=== PATIENT | female | born 1955 | race Caucasian/White ===

== ENCOUNTER 2018-07-31 09:56 | Emergency (ER) | payer OTHER ==
[~2018-07-31] VITALS: Ht 149.9 cm; Wt 59.0 kg
--- NOTE | 2018-07-31 09:56 | NUR ---
PT ELIJAHA BLS TO ER BED 09
[2018-07-31 09:59] VITALS: BP 132/81
--- NOTE | 2018-07-31 10:00 | NUR ---
BROUGHT IN BY [facility] PT FELL FROM A SEATED POSITION WHILE LEANING FOWARD TENNILLE SIZE DISCOLORATION TO FOREHEAD AND EPISTAXIS BLEEDING NOT CONTINUED UPON ER ARRIVAL HX--TRISOMY 21, ARTHRITIS, HTN RX---?
--- NOTE | 2018-07-31 10:45 | NUR ---
Soto Malik (DP/Gyn Physician) for transportation
--- NOTE | 2018-07-31 11:00 | NUR ---
# 8 FR Urinary catheter inserted utilizing sterile technique. Immediate return of 150 ml yellow urine noted. Urine sample collected and sent to lab. Pt tolerated procedure well .
[2018-07-31 11:30] LABS: APPEARANCE,URINE SLIGHTLY HAZY (CLEAR); COLOR,URINE YELLOW (YELLOW)
--- NOTE | 2018-07-31 11:30 | NUR ---
tech at bedside performing wound care
[2018-07-31 11:31] LABS: BILIRUBIN,URINE NEGATIVE (NEGATIVE); BLOOD, URINE NEGATIVE (NEGATIVE); LEUKOCYTE ESTERASE ,URINE NEGATIVE (NEGATIVE); NITRITE, URINE NEGATIVE (NEGATIVE); UGLUCOSE NEGATIVE (NEGATIVE)
[2018-07-31 11:35] LABS: RBC,URINE 0-5 (RARE) /HPF (0-5); WBC,URINE 0-5 (RARE) /HPF (0-5)
--- NOTE | 2018-07-31 12:30 | NUR ---
pt on stretcher asleep in nad
--- NOTE | 2018-07-31 13:35 | NUR ---
pt on stretcher asleep in nad
[2018-07-31 15:25] VITALS: BP 108/72
--- NOTE | 2018-07-31 15:25 | NUR ---
Patient discharged with v/s stable. Written and verbal after care instructions given and explained. Patient alert, oriented and verbalized understanding of instructions. Wheel Chair Assisted with to car. All questions addressed prior to discharge. ID band removed. Patient advised to follow up with PMD. Opportunity to ask questions provided and answered.
== END 2018-07-31 15:25 | disposition home or self-care (01) ==
LOC: MED 09:56
DX: S00.33XA Contusion of nose, initial encounter (principal); W18.30XA Fall on same level, unspecified, initial encounter; Y93.89 Activity, other specified; Y92.210 Daycare center as the place of occurrence of the external cause; Y99.8 Other external cause status
CPT/HCPCS: 70450; 70486; 72125; 81001; 99285; C1758

== ENCOUNTER 2018-11-09 11:37 | Emergency (ER) | payer OTHER, MEDICAID ==
[~2018-11-09] VITALS: Ht 137.2 cm; Wt 44.9 kg
[2018-11-09 11:46] VITALS: BP 127/50
--- NOTE | 2018-11-09 12:00 | NUR ---
BROUGHT IN BY [facility] CUSTODIAL JOHANN ESTEVEZ C/O PT NOTED WITH INCREASED PETIT SEIZURES AND DIARRHEA X TODAY HX---PETIT SEIZURE, PROFOUND INTELLECTUAL DISABILITY, DEAF/MUTE, HYPOTHYROIDISM, HTN, URINE INCONTINENCE, DEMENTIA RX---HCTZ 25MG/ LEVOTHYROXINE 25MCG/LINZESS 145MCG/ MIRTAZAPINE 15MG/ POTASSIUM ER 10MEQ/ SIMVASTATIN 20MG/ ZONISAMIDE 100MG/ OLANZAPINE 2.5MG/
[2018-11-09] MEDS ORDERED: ORE25 PO (12:35)
[2018-11-09] MEDS ORDERED: OLAN2.5T1 PO (12:35)
[2018-11-09] MEDS ORDERED: ZONI100C5 PO (12:35)
[2018-11-09] MEDS ORDERED: POTA10TE30 PO (12:35)
[2018-11-09] MEDS ORDERED: LINA145C PO (12:35)
[2018-11-09] MEDS ORDERED: MIRT15TA PO (12:35)
[2018-11-09] MEDS ORDERED: METH-1213 PO (12:35)
[2018-11-09] MEDS ORDERED: SIMV20TA1 PO (12:35)
[2018-11-09] MEDS ORDERED: CALC625T27 PO (12:35)
[2018-11-09] MEDS ORDERED: SYN.05 PO (12:35)
[2018-11-09] MEDS ORDERED: NACL 0.9% 1,000 ML IV ONE (12:42)
[2018-11-09] MEDS ORDERED: NACL 0.9% 1,000 ML IV SCH (12:42)
--- NOTE | 2018-11-09 12:44 | NUR ---
URINE SPECIMEN COLLECTE VIA STRIGHT CATH USING STERILE TECHNIQUE WITH EVERT DIAZ'S HELP. SPECIMEN GIVEN TO [facility]. PROCEDURE TOLERATED WELL
[2018-11-09 13:16] LABS: ACETONE, SERUM NEGATIVE (NEGATIVE)
[2018-11-09 13:17] LABS: CHLORIDE 107 mmol/L (98-107); CREATININE 0.8 mg/dL (0.6-1.3); GFR ARICAN-AMERICAN 93 mL/min (>90); GLUCOSE 111 mg/dL (74-106); SODIUM SERUM 138 mmol/L (136-145); UREA NITROGEN, BLOOD 23 mg/dL (7-18)
[2018-11-09 13:22] LABS: BILIRUBIN,URINE NEGATIVE (NEGATIVE); BLOOD, URINE NEGATIVE (NEGATIVE); COLOR,URINE YELLOW (YELLOW); LEUKOCYTE ESTERASE ,URINE NEGATIVE (NEGATIVE); UGLUCOSE NEGATIVE (NEGATIVE)
[2018-11-09 13:23] LABS: ALBUMIN 3.3 g/dL (3.4-5.0); AMYLASE 62 U/L (25-115); ASPARTATE AMINOTRANSFERASE 32 U/L (15-37); LIPASE 137 U/L (73-393); MAGNESIUM 2.3 mg/dL (1.8-2.4); TOTAL BILIRUBIN 0.4 mg/dL (0.0-1.0)
[2018-11-09 13:24] LABS: PROTHROMBIN TIME 9.8 secs (10.8-13.4)
[2018-11-09 13:26] LABS: APPEARANCE,URINE SLIGHTLY HAZY (CLEAR); NITRITE, URINE POSITIVE (NEGATIVE)
[2018-11-09 13:27] LABS: RBC,URINE NONE SEEN /HPF (0-5); WBC,URINE 0-5 (RARE) /HPF (0-5)
[2018-11-09 15:51] LABS: BASOPHILS # (AUTO) 0.1 K/uL (0.00-0.22); BASOPHILS % (AUTO) 1.3 % (0.0-2.0); HEMATOCRIT 41.3 % (36-48); HEMOGLOBIN 13.4 g/dL (12.0-16.0); LYMPHOCYTES # (AUTO) 0.7 K/uL (2.5-16.5); LYMPHOCYTES % (AUTO) 18.7 % (20.5-51.1); MEAN CORPUSCULAR HEMOGLOBIN 32 pg (27-31); MEAN CORPUSCULAR HGB CONC 32 g/dL (33-37); MEAN CORPUSCULAR VOLUME 98.4 fL (80-94); MONOCYTES # (AUTO) 0.5 K/uL (0.8-1.0); MONOCYTES % (AUTO) 12.1 % (1.7-9.3); NEUTROPHILS # (AUTO) 2.7 K/uL (1.8-7.7); NEUTROPHILS % (AUTO) 66.9 % (42.2-75.2); PLATELET COUNT (AUTO) 216 K/uL (140-450); RED BLOOD CELL COUNT(AUTO) 4.19 MIL/uL (4.20-5.40); RED CELL DISTRIBUTION WIDTH 14.6 % (11.6-13.7)
[2018-11-09 16:55] VITALS: BP 126/77
--- NOTE | 2018-11-09 16:55 | NUR ---
Patient discharged with v/s stable. Written and verbal after care instructions given and explained. Patient verbalized understanding. Wheel Chair Assisted with to car. All questions addressed prior to discharge. Advised to follow up with PMD.
== END 2018-11-09 16:55 | disposition home or self-care (01) ==
LOC: MED 11:37
DX: S00.83XA Contusion of other part of head, initial encounter (principal); S00.31XA Abrasion of nose, initial encounter; G40.909 Epilepsy, unspecified, not intractable, without status epilepticus; R19.7 Diarrhea, unspecified; I10 Essential (primary) hypertension; E03.9 Hypothyroidism, unspecified; Q90.9 Down syndrome, unspecified; W18.39XA Other fall on same level, initial encounter; Y93.89 Activity, other specified; Y92.89 Other specified places as the place of occurrence of the external cause; Y99.8 Other external cause status
CPT/HCPCS: 36415; 70450; 80053; 81001; 82009; 82150; 83605; 83690; 83735; 84484; 85025; 85610; 85730; 87086; 90471; 90715; 93005; 96360; 96361; 99284; C1758; J7030